=== PATIENT | female | born 1950 | race Caucasian/White ===

== ENCOUNTER → 2018-09-17 | Outpatient (CLI) | payer BC | LOC: US 07:41 | PROVIDERS: ATTEND Internal Medicine | DX: I35.1 Nonrheumatic aortic (valve) insufficiency (principal) | CPT/HCPCS: 93306 ==

== ENCOUNTER → 2018-09-20 | Outpatient (CLI) | payer BC ==
--- NOTE | 2018-09-24 19:35 | RT HOLTER TEST ---
FACILITY: [facility] PATIENT NAME: JOANNE LEAHY : [id number] MR: [id number]: [id number] EXAM DATE: ORDERING PHYSICIAN: LYNSEY JONES TECHNOLOGIST: TORREY Hook-up date: 2018-09-20 07:11:00 Duration: 47:52:00 Test Indications: HEART MURMUR Medications: N/A [id number] QRS complexes 35 Ventricular ectopics which represent <1 % of total QRS comp. 68 Supraventricular ectopics which represent <1 % of total QRS comp. * Paced QRS complexes which represent % of total QRS comp. VENTRICULAR ECTOPY 29 Isolated 0 Bigeminal Cycles 3 Couplets 0 Runs 0 Beats in Runs * Beats LONGEST at * BPM at :: -- * Beats FASTEST at * BPM at :: -- SUPRAVENTRICULAR ECTOPY 61 Isolated 1 Couplets 1 Runs 5 Beats in Runs 5 Beats LONGEST at 120 BPM at 04:46:37 2018-09-21 5 Beats FASTEST at 120 BPM at 04:46:37 2018-09-21 HEART RATES 51 MIN at 05:17:09 2018-09-22 87 AVG 147 MAX at 16:48:10 2018-09-21 LONGEST RR 1.496 secs at 02:46:59 2018-09-22 S-T LEVELS Channel 1 -12.800 mm MIN at 07:11:00 2018-09-2012.800 mm MAX at 07:11:00 2018-09-20 Channel 2 -12.800 mm MIN at 07:11:00 2018-09-2012.800 mm MAX at 07:11:00 2018-09-20 Channel 3 -12.800 mm MIN at 07:11:00 2018-09-2012.800 mm MAX at 07:11:00 2018-09-20 Sinus rhythm throughtout study. Infrequent PVC and PAC. Events recorded appear to correlate with sinus rhythm Infrequent dropped beats. Negative halter study. Confirmed by El Louis ([id number]) on 09/24/2018 7:35:02 PM Referred By: Overread By: El Dozier
== END ==
LOC: RESP 07:46
PROVIDERS: ATTEND Internal Medicine
DX: R01.1 Cardiac murmur, unspecified (principal)
CPT/HCPCS: 93225; 93226